=== PATIENT | male | born 1975 | race Two or more races ===

== ENCOUNTER 2017-05-21 08:36 | Emergency (ER) | payer OTHER ==
[2017-05-21 08:51] VITALS: BMI 26.6
--- NOTE | 2017-05-21 09:23 | PDOC ---
Attending Attestation - Resident Resident Name: DíazFroilan - ED Attending Attestation I have performed the following: I have examined & evaluated the patient, The case was reviewed & discussed with the resident, I agree w/resident's findings & plan, Exceptions are as noted - HPI HPI: 05/21/17 09:20 41 yo M presenting to the ER with a complaint of chest pain x 10 years Pain typically intermittent Now constant over the past 3 days No cough, no fevers, no chills No chest wall trauma No recent travel - Physicial Exam PE: 05/21/17 09:21 RRR CTA bilaterally No chest wall tenderness elicited - Medical Decision Making 05/21/17 09:22 Pt presents with a complaint of chest pain x 10 years which has been constant over the past 3 days 1. labs 2. ekg 3. cxr Perc neg, low risk wells Will discharge if studies negative Outpatient follow up Heart Score/ECG Review - History History: Slightly suspicious - Electrocardiogram EKG: Normal - Age Age: </= 45 - Risk Factors Risk Factors Heart Score: Yes Hx Hypercholesterolemia Based on the list above the patient has:: 1-2 risk factors - Troponin Troponin: </= normal limit - Score Heart Score - Total: 1 #1 ECG reviewed & interpreted by me at: 09:23 General ECG Interpretation: Sinus Rhythm, Normal Rate, Normal Intervals, No acute ischemic changes
[2017-05-21 09:36] LABS: BASOPHIL 1.3 % (0-2.0); EOSINOPHIL 2.8 % (0-4.5); MCH 30.8 pg (25.7-33.7); MCHC 34.2 g/dl (32.0-35.9); MEAN CELL VOLUME 90.1 fl (80-96); MEAN PLT VOLUME 9.8 fl (7.5-11.1); NEUTROPHILS 46.6 % (42.8-82.8); RDW 13.3 % (11.9-15.9)
[2017-05-21 10:03] LABS: ALBUMIN 3.8 g/dl (3.4-5.0); ANION GAP 6 (8-16); BILIRUBIN,TOTAL 0.7 mg/dL (0.2-1.0); CALCIUM 9.1 mg/dL (8.5-10.1); CO2 28 mmol/L (21-32); CREATININE 1.1 mg/dL (0.7-1.3); GLUCOSE,RANDOM 94 mg/dL (74-106); SGPT/ALT 52 U/L (12-78); TOT PROT 8.2 g/dl (6.4-8.2)
[2017-05-21 10:06] LABS: ALK PHOS 69 U/L (45-117); TROPONIN I < 0.02 ng/ml (0.00-0.05)
[2017-05-21 10:08] LABS: CPK 247 IU/L (39-308); SGOT/AST 38 U/L (15-37)
--- NOTE | 2017-05-21 10:11 | PDOC ---
History of Present Illness - General Chief Complaint: Chest Pain Stated Complaint: CHEST PAIN Time Seen by Provider: 05/21/17 08:59 History Source: Patient Exam Limitations: No Limitations - History of Present Illness Initial Comments: 05/21/17 10:07 41M with h/o HCL presents to the ED for left sided non-radiating chest pain. He' s been having mild pain on/off for the past 10 years but it hasn't gone away for the past 3 days. No headaches, diaphoresis, shortness of breath on exertion , nausea, vomiting. Pain in non-reproducible on palpation 05/21/17 10:16 Past History - Past Medical History Allergies/Adverse Reactions: Allergies Allergy/AdvReac Type Severity Reaction Status Date / Time No Known Allergies Allergy Verified 05/21/17 08:41 Home Medications: Ambulatory Orders NK [No Known Home Medication] 05/21/17 Hypercholesterolemia: Yes Other medical history: denies - Immunization History Immunization Up to Date: Yes - Psycho/Social/Smoking Cessation Hx Anxiety: No Suicidal Ideation: No Smoking Status: No Smoking History: Never smoked Number of Cigarettes Smoked Daily: 0 Information on smoking cessation initiated: No Hx Alcohol Use: No Drug/Substance Use Hx: No Review of Systems - Review of Systems Constitutional: No: Symptoms Reported HEENTM: No: Symptoms Reported Respiratory: No: Symptoms reported Cardiac (ROS): Yes: See HPI ABD/GI: No: Symptoms Reported : No: Symptoms Reported Musculoskeletal: No: Symptoms Reported Integumentary: No: Symptoms Reported *Physical Exam - Vital Signs Last Vital Signs Temp Pulse Resp BP Pulse Ox 98.0 F 88 18 138/90 100 05/21/17 08:42 05/21/17 08:42 05/21/17 08:42 05/21/17 08:42 05/21/17 08:55 - Physical Exam General Appearance: Yes: Nourished, Appropriately Dressed, Apparent Distress HEENT: positive: EOMI, JEF, Normal ENT Inspection Neck: positive: Trachea midline, Normal Thyroid. negative: Tender Respiratory/Chest: positive: Lungs Clear, Normal Breath Sounds. negative: Chest Tender, Respiratory Distress Cardiovascular: positive: Regular Rhythm, Regular Rate, S1, S2 Gastrointestinal/Abdominal: positive: Normal Bowel Sounds. negative: Tender ED Treatment Course - LABORATORY CBC & Chemistry Diagram: 05/21/17 08:55 05/21/17 08:55 - ADDITIONAL ORDERS Additional order review: Laboratory Results 05/21/17 08:55 Sodium 139 Potassium 4.9 D Chloride 105 Carbon Dioxide 28 Anion Gap 6 L BUN 13 Creatinine 1.1 Creat Clearance w eGFR > 60 Random Glucose 94 Calcium 9.1 Total Bilirubin 0.7 AST 38 H D ALT 52 D Alkaline Phosphatase 69 D Creatine Kinase 247 Creatine Kinase Index 0.4 CK-MB (CK-2) < 1.000 Troponin I < 0.02 Total Protein 8.2 Albumin 3.8 05/21/17 08:55 RBC 4.56 MCV 90.1 MCHC 34.2 RDW 13.3 D MPV 9.8 D Neutrophils % 46.6 Lymphocytes % 41.7 H Monocytes % 7.6 Eosinophils % 2.8 Basophils % 1.3 Medical Decision Making - Medical Decision Making 05/21/17 10:23 41with pmh of HCl present with chronic left sided chest pain, non-remitting for the past 3 days. r/o mi vs angina vs costochondritis labs + ekg negative d/c 05/21/17 10:41 *DC/Admit/Observation/Transfer Diagnosis at time of Disposition: Atypical chest pain - Discharge Dispostion Disposition: HOME Admit: No - Patient Instructions Printed Discharge Instructions: DI for Atypical Chest Pain Additional Instructions: follow up with primary physician
[2017-05-21 11:14] LABS: WHITE BLOOD COUNT 5.9 K/mm3 (4.0-10.0)
[2017-05-21 11:21] VITALS: BP 116/90; PULSE 74; TEMP 98.3
--- NOTE | 2017-05-21 16:19 | EKG ---
Test Reason : Blood Pressure : / mmHG Vent. Rate : 073 BPM Atrial Rate : 073 BPM P-R Int : 150 ms QRS Dur : 102 ms QT Int : 394 ms P-R-T Axes : 042 023 030 degrees QTc Int : 434 ms NORMAL SINUS RHYTHM NORMAL ECG NO PREVIOUS ECGS AVAILABLE Confirmed by CHICA MCFADDEN MD ([id number]) on 05/21/2017 4:19:22 PM Referred By: Confirmed By:CHICA MCFADDEN MD
== END 2017-05-21 11:21 | disposition home or self-care (01) ==
LOC: JER 08:36
DX: R07.89 Other chest pain (principal); E78.00 Pure hypercholesterolemia, unspecified
CPT/HCPCS: 36415; 80053; 82553; 84484; 85025; 93005; 93010; 99283-25